=== PATIENT | male | born 1990 | race Two or more races ===

== ENCOUNTER 2022-08-23 17:28 | Emergency (ER) | payer MEDICAID ==
[~2022-08-23] VITALS: Ht 170.2 cm; Wt 86.2 kg
--- NOTE | 2022-08-23 17:45 | NUR ---
BIBS FOR C/O RIGHT LOWER LEG WOUNDS WITH DISCHARGE, SWELLING AND PAIN 12/13. ONGOING PROBLEM COUPLE OF YEARS. IN ROOM AIR AND DENIES SOB. RESPIRATION REGULAR AND UNLABORED. WILL CONTINUE TO MONITOR THE PATIENT.
[2022-08-23] MEDS ORDERED: ACETAMINOPHEN 325 MG TABLET PO ONE (18:30)
[2022-08-23] MEDS ORDERED: IV NS 0.9% 1,000 ML BAG IV ONE (18:30)
[2022-08-23] MEDS ORDERED: OLANZAPINE 5 MG TABLET PO ONE (18:30)
[2022-08-23] MEDS ORDERED: KETOROLAC TROMETHAMINE INJ 30 MG/ML VIAL IV ONE (18:30)
[2022-08-23] MEDS ORDERED: KETOROLAC TROMETHAMINE 15 MG/ML VIAL ONE (18:31)
[2022-08-23] MEDS ORDERED: OLANZAPINE 5 MG TABLET ONE (18:32)
[2022-08-23] MEDS ORDERED: ACETAMINOPHEN ES 500 MG TABLET ONE (18:32)
[2022-08-23 19:24] LABS: BASOPHILS % (AUTO) 0.4 % (0.0-2.0); EOSINOPHILS % (AUTO) 3.4 % (0.0-6.0); HEMATOCRIT 38 % (39-51); HEMOGLOBIN 12.5 g/dL (13.5-17.5); LYMPHOCYTES # (AUTO) 1.7 K/uL (0.8-4.8); LYMPHOCYTES % (AUTO) 31.5 % (20.0-44.0); MEAN CORPUSCULAR HGB CONC 33 g/dl (31.0-36.0); MEAN CORPUSCULAR VOLUME 87 fL (80-96); MONOCYTES # (AUTO) 0.6 K/uL (0.1-1.30); MONOCYTES % (AUTO) 11.2 % (2.0-12.0); NEUTROPHILS # (AUTO) 2.9 K/uL (1.8-8.9); NEUTROPHILS % (AUTO) 53.5 % (43.0-81.0); PLATELET COUNT (AUTO) 282 K/uL (150-450); RED BLOOD CELL COUNT(AUTO) 4.43 MIL/uL (4.5-6.0); WHITE BLOOD COUNT (AUTO) 5.5 K/uL (4.3-11.0)
[2022-08-23 19:51] LABS: BILIRUBIN,DIRECT 0.1 mg/dL (0.0-0.2); BILIRUBIN,TOTAL 0.6 mg/dL (0.2-1.0); CALCIUM, SERUM 9.4 mg/dL (8.5-10.1); POTASSIUM 3.4 mmol/L (3.5-5.1); TOTAL PROTEIN, SERUM 8.6 g/dL (6.4-8.2)
[2022-08-23] MEDS ORDERED: POTASSIUM CHLORIDE 20 MEQ TAB.PRT.SR PO ONE ×2 (20:30→20:33)
[2022-08-23] MEDS ORDERED: VANCOMYCIN 1 GM in IV D5W 250 ML IV ONE (21:00)
[2022-08-23] MEDS ORDERED: VANCOMYCIN 1 GM VIAL ONE (21:01)
--- NOTE | 2022-08-23 22:50 | NUR ---
JOSÉ MIGUEL BAEZA ON THE PHONE WITH YONG BAKER
--- NOTE | 2022-08-24 00:17 | NUR ---
PT PROVIDED WITH MEAL TRAY TOLERATED WELL
--- NOTE | 2022-08-24 01:43 | NUR ---
accepted under dr bustos at [facility]. waiting for a bed.
--- NOTE | 2022-08-24 03:49 | NUR ---
PT SLEEPING COMFORTABLY RR EVEN AND UNLABORED. CALL LIGHT IN REACH
--- NOTE | 2022-08-24 05:50 | NUR ---
PT ACCEPTED AT [facility] UNDER THE CARE OF DR. TOLDEO. CALL FOR REPORT TO [phone] AFTER 729.
--- NOTE | 2022-08-24 05:55 | NUR ---
GAYLE CALLED FOR BLS GOING TO [facility] ETA [id number] Addendum: 08/24/22 at 0708 by RIOS geo eta: 08
--- NOTE | 2022-08-24 08:21 | NUR ---
REPORT GIVEN TO JACOB DEMPSEY AT [facility]
--- NOTE | 2022-08-24 08:29 | NUR ---
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
--- NOTE | 2022-08-24 08:41 | NUR ---
PATIENT TRANSFERRED FROM HOSPITAL VIA STRETCHER ACCOMPANIED BY 2 heel shaper. PATIENT STABLE AT TIME OF DISCHARGE.
[2022-08-24 08:42] VITALS: BP 128/60
== END 2022-08-24 08:42 | disposition short-term general hospital (02) ==
LOC: ER 17:37
DX: L03.115 Cellulitis of right lower limb (principal); I87.2 Venous insufficiency (chronic) (peripheral); E87.6 Hypokalemia; D64.9 Anemia, unspecified; F15.10 Other stimulant abuse, uncomplicated; F11.20 Opioid dependence, uncomplicated; F41.9 Anxiety disorder, unspecified; Z20.822 Contact with and (suspected) exposure to COVID-19; Z59.00 Homelessness unspecified
CPT/HCPCS: 99285; 96365; 93971; 96361; 96375; 87426; 99406; 73590; 85025; 80048; 87040 ×2; 83605; 80076; 36415; J3370; J7030; J1885; C9803